=== PATIENT | male | born 1950 | race Caucasian/White ===

== ENCOUNTER 2020-11-20 07:07 | Day surgery (SDC) | payer OTHER ==
[2020-11-18 11:03] VITALS: BMI 26.4
[2020-11-20] MEDS: CYCLOPENTOLATE 2% OPHTH SOLN 2 ML BOTTLE ONE ×3 (07:30→07:40)
[2020-11-20] MEDS: TROPICAMIDE 1% OPHTH SOLN 15 ML BOTTLE ONE ×3 (07:30→07:40)
[2020-11-20] MEDS: PHENYLEPHRINE 2.5% OPHTH SOLN 15 ML BOTTLE ONE ×3 (07:30→07:40)
[2020-11-20] MEDS: CIPROFLOXACIN 0.3% EYE DROPS 5 ML BOTTLE ONE ×3 (07:30→07:40)
[2020-11-20] MEDS ORDERED: NEO/POLYMYX B SULF/DEXAMETH OPHTHALMIC 5ML BOTTLE ONE (08:56)
[2020-11-20] MEDS ORDERED: TETRACAINE 0.5% OPHTH SOLN 2 ML BOTTLE ONE (08:56)
[2020-11-20] MEDS ORDERED: LIDOCAINE 1% P/F 10 MG/ML VIAL ONE (08:56)
[2020-11-20] MEDS ORDERED: BSS (NA/CA/MG/K) BALANCED SALT SOLUTION OPHTH SOLN 15 ML BOTTLE ONE (08:56)
[2020-11-20] MEDS ORDERED: CARBACHOL 0.01% INTRA-OCULAR 1.5 ML VIAL ONE (08:56)
[2020-11-20] MEDS ORDERED: MIDAZOLAM HCL 2 MG/2 ML SINGLE DOSE VIAL ONE (08:57)
[2020-11-20 10:16] VITALS: PULSE 56; TEMP 98
[2020-11-20 10:32] VITALS: BP 140/79
== END 2020-11-20 10:20 | disposition home or self-care (01) ==
LOC: FASU 07:07
PROVIDERS: ATTEND Ophthalmology
PROC: 08RK3JZ Replacement of Left Lens with Synthetic Substitute, Percutaneous Approach (ICD-10-PCS; principal; 2020-11-20 09:16)
DX: H26.8 Other specified cataract (principal)